=== PATIENT | female | born 1965 | race Caucasian/White ===

== ENCOUNTER 2020-06-25 07:10 | Day surgery (SDC) | payer OTHER ==
[~2020-06-25 07:10] MED LIST: CARVEDILOL6.25 MG PO; ELIQUIS5 MG PO; LEXAPRO5 MG PO; SYNTHROID125 MCG PO
== END 2020-06-25 16:20 | disposition home or self-care (01) ==
LOC: CIR.AMB 07:10
PROVIDERS: ATTEND Orthopaedic Surgery Hand Surgery
DX: S52.531A Colles' fracture of right radius, initial encounter for closed fracture (principal); Z20.828 Contact with and (suspected) exposure to other viral communicable diseases
CPT/HCPCS: 25609; 25118; 25280; C1776